=== PATIENT | female | born 1970 | race Caucasian/White ===

== ENCOUNTER → 2017-05-11 | Outpatient (CLI) | payer BC ==
[~2017-05-11] VITALS: Ht 167.6 cm; Wt 93.2 kg
[~2017-05-11] MED LIST: ASCORBIC ACID500 M1 PO; BIOTIN5 MG PO; CALCIUM500 M4 PO; CYMBALTA60 MG PO; DAILY VITAMIN1 EAC8 PO; DEXAMETHASONE4 MG PO; GABAPENTIN300 MG PO; LEXAPRO10 MG PO; MOBIC15 MG PO; NEURONTIN400 MG PO; NORCO 5/3251 TABLET PO; PERCOCET 10/1 TABLET PO; PERCOCET 5/31 TABLET PO; PREDNISONE50 MG PO; PROBIOTIC1 EAC1 PO; TEGRETOL200 MG PO; VITAMIN B-12 PO; VITAMIN B-121000 MCG PO; VITAMIN B-6 PO; VITAMIN B-6200 M1 PO; VITAMIN D2000 INTUN PO; ZOFRAN ODT4 MG PO; vit b12; vit b6
[2017-05-11 08:05] VITALS: BP 135/81
== END | disposition home or self-care (01) ==
LOC: IVINF 08:00
PROVIDERS: Family Medicine
DX: E27.40 Unspecified adrenocortical insufficiency (principal)
CPT/HCPCS: 80400; 82024 90; 82533 91; 96374; J0834